=== PATIENT | female | born 1950 | race Caucasian/White ===

== ENCOUNTER 2020-06-16 02:15 | Observation (INO) | payer MEDICARE, SELFPAY ==
[2020-06-16 02:50] VITALS: BMI 37.2
[2020-06-16 02:54] VITALS: BP 130/65; PULSE 83; RESP 16; TEMP 36.9; O2SAT 98
--- NOTE | 2020-06-16 03:01 | CTR_ITS ---
PROCEDURE INFORMATION: Exam: CT Abdomen And Pelvis Without Contrast Exam date and time: 06/16/2020 3:29 AM Age: 69 years old Clinical indication: Pain and abnormal findings; Abnormal lab test; Elevated lipase; Abdominal pain; Generalized; Prior surgery; Surgery type: Gb. Hysterectomy. ; Patient HX: Transient abd pain with elevated lipase. ; Additional info: Abd pain, lipase high TECHNIQUE: Imaging protocol: Computed tomography of the abdomen and pelvis without contrast. Radiation optimization: All CT scans at this facility use at least one of these dose optimization techniques: automated exposure control; mA and/or kV adjustment per patient size (includes targeted exams where dose is matched to clinical indication); or iterative reconstruction. COMPARISON: No relevant prior studies available. RADIATION DOSE METRICS: Total DLP (mGy-cm): 1804.42 FINDINGS: Lungs: Coarsening of pulmonary interstitial markings at lung bases suspected to represent fibrosis. Liver: Normal. No mass. Gallbladder and bile ducts: Normal. No calcified stones. No ductal dilation. Pancreas: Normal. No ductal dilation. Spleen: Normal. No splenomegaly. Adrenal glands: Normal. No mass. Kidneys and ureters: Normal. No hydronephrosis. Stomach and bowel: Bowel surgical changes at right lower quadrant. Appendix: No evidence of appendicitis. 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 Vasculature: Vascular calcifications are noted. No abdominal aortic aneurysm. Lymph nodes: Unremarkable. No enlarged lymph nodes. Urinary bladder: Unremarkable as visualized. Reproductive: Hysterectomy. Bones/joints: No acute fracture. Soft tissues: Right breast surgical changes noted. Other findings: Elevated right hemidiaphragm. 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 Coarsening of pulmonary interstitial markings at lung bases suspected to represent fibrosis. Additional details as above. Radiation Dose CTDIVOL = (mGy): DLP = 1804.42 (mGy-cm)
--- NOTE | 2020-06-16 03:06 | PM.HP ---
Providers/Chief Complaint Admitting Physician: Anjum Ling MD Chief Complaint: HYPERGLYCEMIA History of Present Illness SHAHID ROGER is a 69 year old female who has recently moved to [place] from [place], carries diagnosis of type 2 diabetes does not use insulin presented to [facility] twice in last 48 hours for urinary frequency and high blood sugar. She was seen in the ER for hyperglycemia, she did not meet DKA criteria, she received IV fluids and IV insulin along potassium and will discharge around 10 AM on 06/15 without insulin however hemoglobin A1c is 13. She was asked to follow-up with PCP and her Metformin dose was increased. She went home had fried fish and diet soda and started experiencing nausea, she kept having urinary frequency and glucose monitor was not able to read her high blood sugar. She went to the [facility] again and was directed to our facility for management of poorly controlled type 2 diabetes. Diagnostics at the other facility revealed potassium 3.6 which was repleted with 40 mEq p.o. KCl, sodium 127, lipase 153, pseudohyponatremia, she received 10 units of insulin and her blood sugar improved to 320 after getting normal saline 1 L. TSH normal, lactic acid 2.0, mild leukocytosis 11.0, requested CT abdomen to rule out pancreatitis Patient does endorse polyphagia, polyuria polydipsia, she is up-to-date with her colonoscopies and mammogram has history of lumpectomy, Review of Systems Const: Reports: chills, body aches and fatigue; Denies: fever(s) Eyes: Denies: change in vision ENMT: Denies: throat pain Card: Denies: chest pain Resp: Denies: dyspnea GI: Reports: nausea and diarrhea : Denies: flank pain Musc: Reports: muscle cramps Skin/Breast: Denies: rash Neuro: Denies: headache(s) Psych: Denies: anxiety Endo: Denies: polyuria Geraldo/Lymph: Denies: easy bruising All/Imm: Denies: urticaria Medications/Allergies Allergies Allergy/AdvReac Type Severity Reaction Status Date / Time codeine Allergy ADR-Vomitin Verified 06/16/20 03:01 g Iodinated Contrast Media Allergy ALGY-Rash Verified 06/16/20 03:01 quinapril Allergy ADR-Vomitin Verified 06/16/20 03:01 g PFSH Acute PFSH: Medical History (Updated 06/16/20 @ 03:10 by Anjum Ling MD) Diabetes HTN (hypertension) Murmur, cardiac Surgical History (Updated 06/16/20 @ 03:21 by Anjum Ling MD) H/O lumpectomy H/O neck surgery H/O: hysterectomy Tubal ligation status Family History (Updated 06/16/20 @ 03:11 by Anjum Ling MD) Mother Diabetes CAD (coronary artery disease) Hypertension Stroke Cancer Sister Diabetes Hypertension Stroke Cancer Brother Diabetes Hypertension Father CAD (coronary artery disease) Social History (Updated 06/16/20 @ 03:11 by Anjum Ling MD) Smoking and tobacco status: never smoked Alcohol intake: never Substance/Drug Use: never Lives independently: Yes Housing: Apartment Vitals/I&O/Wt Last Vital Signs Temp 98.5 F 06/16/20 02:54 Pulse 83 06/16/20 02:54 Resp 16 06/16/20 02:54 BP 130/65 06/16/20 02:54 Pulse Ox 98 06/16/20 02:54 Physical Exam Narrative: EXAM NARRATIVE: Very pleasant elderly female, appears stated age No signs of active dehydration or fluid overload Saturating well on room air No active chest pain shortness of breath abdominal pain S1, S2 systolic murmur grade 2/6 Abdomen soft mild tenderness in mid epigastric region bowel sound present Extremities no edema gangrene or ulcer Bilateral breath sounds without adventitious rhonchi or crackles Awake alert oriented x3 GCS 15 No neurological deficits Very pleasant with appropriate mood and affect A&P Assessment and plan (1) Hyperglycemia due to diabetes mellitus: Status: Acute (2) Hyponatremia: Status: Acute (3) Elevated lipase: Status: Acute (4) Hypokalemia: Status: Acute Additional A&P Information Poorly controlled type 2 diabetes Hemoglobin A1c is 13, she lives alone and has never used insulin before, I would start her on Lantus 10 units and start her on moderate sliding scale Will request diabetic teaching TSH 3.0 EKG without any ischemic or infarctive changes, patient is denying dysuria however endorsing polyuria which I believe is secondary to hyperglycemia UA reveals glucosuria, no need of antibiotics, no signs of NM as per EKG from the other facility, noted high lipase rule out pancreatitis requested CT abdomen pelvis Hypokalemia: Repleted Pseudohyponatremia: Hyponatremia secondary to hyperglycemia, corrected sodium is within normal range Essential hypertension: Discontinue hydrochlorothiazide as she is at risk of polyuria due to hyperglycemia I would use losartan instead, she has allergies to lisinopril Full code Consistent carb diet DVT prophylaxis Lovenox Attestations Medical Necessity Statement*: Anticipating discharge in less than 48 hours will need overnight monitoring for hypoglycemia and will need diabetic teaching and initiation of Lantus Time Spent in Patient Care: (>than 50% of time spent in counselling and/or direct pt care on unit). 50mins Coding Level of Care Code Acute Crime Scene Investigator for Chg Fwd Diagnoses Hyperglycemia due to diabetes mellitus E11.65 Hyponatremia E87.1 Elevated lipase R74.8 Hypokalemia E87.6
[2020-06-16 03:52] VITALS: BP 131/69; PULSE 79; RESP 16; TEMP 36.6; O2SAT 96
[2020-06-16] MEDS: enoxaparin 40 mg/0.4 mL Syringe SUBCUT (04:26)
[2020-06-16] MEDS: insulin glargine 100 units/1 mL 10 UNIT SUBCUT (04:26)
[2020-06-16] MEDS: sodium chloride 0.9% 1,000 ML 75 ML IV (04:26)
[2020-06-16] MEDS: potassium chloride ER 20 mEq Tablet 40 MEQ PO (04:27)
[2020-06-16 05:41] LABS: Basophils % 0.4 %; Eosinophils # 0.3 10^3/uL (0.0-0.8); Eosinophils % 2.9 %; Hematocrit 36.1 % (37.0-47.0); Hemoglobin 11.7 g/dL (11.5-15.3); Lymphocytes # 1.5 10^3/uL (0.8-4.8); Lymphocytes % 16.2 %; Mean Corpuscular HGB Conc 32.4 g/dL (30.0-36.0); Mean Corpuscular Hemoglobin 27.2 pg (28.0-34.0); Mean Platelet Volume 10.8 fL (7.4-10.4); Monocytes # 0.8 10^3/uL (0.2-0.9); Monocytes % 8.2 %; Neutrophils # 6.62 10^3/uL (1.8-7.7); Neutrophils % 71.8 %; Nucleated Red Blood Cells % 0 %; Platelet Count 193 10^3/cmm (130-400); Red Cell Distribution Width 13.7 % (12.1-15.1); White Blood Count 9.2 10^3/uL (4.0-10.0)
[2020-06-16] MEDS: levothyroxine 100 mcg Tablet PO (05:43)
[2020-06-16] MEDS: piperacillin-tazobactam 3.375 GM in sodium chloride 0.9% (plus) 50 ML IV ×2 (05:43→12:36)
[2020-06-16 05:55] LABS: Anion Gap 9.7 (5-19); Blood Urea Nitrogen 8 mg/dL (8-23); Calcium 7.7 mg/dL (8.5-10.5); Carbon Dioxide 30 mmol/L (22-29); Chloride 98 mmol/L (98-107); Creatinine Clr Calc Pharmacy 66.5855; Glucose 295 mg/dL (65-115); Osmolality Calculated 287 mOsm/kg (285-295); Potassium 3.7 mmol/L (3.5-5.1); Sodium 134 mmol/L (136-145)
[2020-06-16 06:05] LABS: Estmated Average Glucose 329; Hemoglobin A1C 13.1 % (4.0-6.0)
[2020-06-16 06:08] LABS: Chol HDL Ratio 3.32 mg/dL (0.0-4.40); Cholesterol 136 mg/dL (0-200); HDL Cholesterol 41 mg/dL (60-100); LDL Cholesterol Calculated 65 mg/dL (50-129); LDL HDL Ratio 1.59 RATIO (0.00-3.22); Triglycerides 148 mg/dL (0-150)
[2020-06-16 06:56] LABS: Glucose Point of Care 259 mg/dL (70-110)
[2020-06-16 07:29] VITALS: BP 138/71; PULSE 70; RESP 17; TEMP 36.8; O2SAT 98
[2020-06-16 08:43] VITALS: BP 138/71
[2020-06-16] MEDS: labetalol 200 mg Tablet PO ×2 (08:43→18:02)
[2020-06-16] MEDS: losartan 50 mg Tablet PO (08:43)
--- NOTE | 2020-06-16 10:41 | PC.CHAP ---
Pastoral Care Encounter/Spiritual Assessment Type of Contact [] Declined ignition expert visit [] Patient/Family/Request visit [] Outpatient visit [] Follow-up visit [] Physician referral [] Code/Alert [x] Routine visit [] Staff referral [] Actively dying [] Patient sleeping [] Family support [] [] Out of room [] Palliative care [] [x] Receiving care in room [] Pre-surgical visit [] Trauma [] Long length of stay [] ICU visit [] Other: Relational/Emotional Strength [x] Patient feels connected with others/family/visitors/staff [] Distress [] Loneliness/isolation [] Abandonment Spirituality of Patient [x] Person of Soraya [] Attends Advent of their Soraya [] Believes in Prayer [] Reads Bible or Voodoo materials [] There are Spiritual issues to be addressed Obstetrical Nurse Interventions [x] Prayer [x] Active listening [x] Non-anxious presence [x] Spiritual/emotional support [] Crisis/trauma care [x] Spiritual counseling [] Bereavement support [] Provided bereavement packet [] Provided Bible/devotional materials [] Provided toy/stuffed animal, coloring book to patient or family member [] Provided Communion [] Anointing/Brashear [] Salvation [x] Completed spiritual assessment [] Other: Impact on Illness or Injury [] Angry [] Fearful [x] Anxious [] Often cries [] Exhaustion [] Unable to work [] Unable to attend voodoo [] Unable to walk/stand [] Unable to read [] Unable to drive [] Unable to eat/drink [] Unable to sleep [] Unable to be with family [] Patient intubated [] Other: Summary blood tests as not hed from doctor feels good and has a good attitude going home soon Time spent with patient 10 mins
[2020-06-16 10:51] LABS: Glucose Point of Care 262 mg/dL (70-110)
[2020-06-16 11:28] VITALS: BP 101/56; PULSE 72; RESP 17; TEMP 37.1; O2SAT 96
--- NOTE | 2020-06-16 14:09 | P.PN_ITS ---
Subjective Subjective: Interval history: overnight labs and H7P reviwed, no acute interim events, blood sugar ranging between 250-260, nausea and pain now resolved Medications: Reviewed: Yes Vitals/I&O/Wt Last Vital Signs Temp 98.8 F 06/16/20 11:28 Pulse 72 06/16/20 11:28 Resp 17 06/16/20 11:28 BP 101/56 06/16/20 11:28 Pulse Ox 96 06/16/20 11:28 06/15/20 06/16/20 06/16/20 22:59 06:59 14:59 Intake Total 845 / 845 Output Total 250 / 250 600 / 600 Balance -250 / -250 245 / 245 Weight last 48 hrs Weight 89.448 kg Physical Exam Narrative: EXAM NARRATIVE: GEN: Awake, alert and oriented, no acute distress CVS: S1S2 N RS: CTA B/L Abd: Soft, nt/nd , bs+ OUTBOARD SYSTEM OPERATOR: no focal neuro deficits Data : 06/16/20 05:07 06/16/20 05:07 A&P Assessment and plan (1) Hyperglycemia due to diabetes mellitus: Status: Acute (2) Hyponatremia: Status: Acute (3) Elevated lipase: Status: Acute (4) Hypokalemia: Status: Acute Additional A&P Information Poorly controlled type 2 diabetes Hemoglobin A1c is 13, indicative of poor glycemic control, reports that recently her dose of metformin was increased by her PCP, does not recall her last A1c. At present given a1c >9, indicated to start insulin. Insulin requirements over the last 24 hrs at 28 units Patient is insulin naive, has never used in the past At this time menable to starting once daily Insulin lantus - will prescribe at 12u for now- follow up with PCP in the next 4-7 days with sugar log to adjust dosing. Hypokalemia: Repleted Pseudohyponatremia: Hyponatremia secondary to hyperglycemia, corrected sodium is within normal range Essential hypertension: Discontinued hydrochlorothiazide overnight as she is at risk of polyuria due to hyperglycemia. Started on losartan instead in addition to continuing labetalol 200mg BID. Patient unabel to retun home today as her son needs to set up apartment for her - request discharge tomorrow so her home can be ready Full code Consistent carb diet DVT prophylaxis Lovenox Attestations Medical Necessity Statement*: continued observation, blood sugar better controlled with insulin, needs her home to be set up for discharge Coding Level of Care Code Acute Supervisor Lace Tearing for Chg Fwd Diagnoses Hyperglycemia due to diabetes mellitus E11.65 Hyponatremia E87.1 Elevated lipase R74.8 Hypokalemia E87.6
[2020-06-16 15:00] VITALS: BP 112/63; PULSE 76; RESP 18; TEMP 36.7; O2SAT 94
[2020-06-16 16:34] LABS: Glucose Point of Care 271 mg/dL (70-110)
== END 2020-06-16 19:10 | disposition home or self-care (01) ==
PROVIDERS: Admitting Provider Internal Medicine; Visit Provider Student in an Organized Health Care Education/Training Program
DX: E11.65 Type 2 diabetes mellitus with hyperglycemia (principal); E87.1 Hypo-osmolality and hyponatremia; R74.8 Abnormal levels of other serum enzymes; E87.6 Hypokalemia; I10 Essential (primary) hypertension; Z82.49 Family history of ischemic heart disease and other diseases of the circulatory system
CPT/HCPCS: 36415; 36416; 74176; 80048; 80061; 82962; 83036; 85025; 96372; G0378; G0379; J1650; J1815 ×2; J2543; J7030

== ENCOUNTER 2020-08-18 14:06 | Outpatient (CLI) | payer MEDICARE, SELFPAY ==
--- NOTE | 2020-08-18 14:22 | MM_ITS ---
WS: [id number] Bilateral screening digital mammogram, 08/18/2020 Clinical Data: SCREENING Comparison: None. Findings: The breast parenchymal pattern shows heterogeneous density, more on the right than the left. There is skin thickening of the right breast with deformity of the medial aspect of the right breast. No spic ulated masses or clustered calcifications are seen. There are benign calcifications in the left breas t.There are lymph nodes in the left axilla. MM/[id number] Impression: 1. Postsurgical changes of the right breast. 2. Negative left breast. 3. Recommend annual screening mammograms. BIRADS: 2-Benign FOLLOW UP: 1 Year Follow-up The CAD dump grounds checker was used.
== END 2020-08-18 14:07 | disposition home or self-care (01) ==
LOC: RADSHAW 14:12
PROVIDERS: PCP Family Medicine; Visit Provider Family Medicine
DX: Z12.31 Encounter for screening mammogram for malignant neoplasm of breast (principal)
CPT/HCPCS: 77067

== ENCOUNTER → 2020-08-24 08:43 | Outpatient (BNVA) | payer MEDICARE, SELFPAY | PROVIDERS: PCP Family Medicine; Visit Provider Internal Medicine Cardiovascular Disease | DX: Z01.818 Encounter for other preprocedural examination (principal); Z20.822 Contact with and (suspected) exposure to COVID-19 | CPT/HCPCS: 80048; 85025; 87635 ==

== ENCOUNTER 2020-08-30 08:25 | Day surgery (SDC) | payer MEDICARE, SELFPAY ==
[2020-08-30] VITALS (10 sets, daily range): BP systolic 114–127; BP diastolic 65–101; PULSE 85–94; RESP 16–23; TEMP 36.4–36.9; O2SAT 91–96; BMI 35.3
--- NOTE | 2020-08-30 09:00 | XACV_ITS ---
Ht: 155 cm Wt: 85 kg BSA: 1.95 m2 Gender: Female : 1950 Any Known Allergies: Other Exam Priority: Routine Procedure(s): Procedure Description: Diagnostic procedure Procedure Description: Coronary Angiography Diagnostic Findings * No disease noted in the Left Main, Left Anterior Descending, Right, or Circumflex coronary arteries. * Coronary angiography shows right dominance. Conclusions 1. No disease noted in the Left Main, Left Anterior Descending, Right, or Circumflex coronary arteries. Recommendations * Continue current medical management and risk factor modification. Pressures Phase:Rest AO : 84 / 57 ( 31 ) @ 10:22:00 AM Clinical Evaluation EBL: 5mL-10mL Procedural Details Procedure Consent Obtained. Pre-Procedure Time Out. Identified patient by full name and date of as verbalized by the patient/guarantor. Does the consent match the physician's order: Yes. Accurate & Complete Informed Consent: Yes. Inpatient/Outpatient History & Physical on Chart: Yes. If H&P is completed, is and addenduem needed: N/A; If yes, is the addendum complete: N/A. Visualize and Verify Site with Patient/Guarantor: N/A. Relevant Radiology Images available: Yes. Pre-op teaching completed and patient verbalized understanding. The risks, benefits, and alternatives of sedation and/or procedure were discussed by physician. The patient agrees to continue. Procedure started. PERRLA. Strong, equal hand drywall applicator bilaterally. Lungs clear x 5 lobes. IV Fluids: 0.9% NaCl at KVO. 0 mL infused prior to photographic laboratory technician. Pre Procedural Pulses: bilateral dorsalis pedis was 3+. Pre Procedural Pulses: bilateral posterior tibial was 1+. Pre Procedural Pulses: bilateral radial was 3+. Oxygen started at 2liters/min via nasal canula. right groin was prepped with chloroprep then draped in the usual sterile fashion. right radial was prepped with chloroprep then draped in the usual sterile fashion. Physician notified. Baseline sample Acquired. HR: 92 BPM. Physician arrived. Equipment: 6F - Radial. Cardiac Cath Pack. ACIST Manifold Kit Model BT 2000. Heparinized Saline (2 units/mL), 1000 mL bag. Physician scrubbed in. Immediate Pre-Procedure Time Out. Correct Patient: Yes; Correct Procedure: Yes; Correct Site: Yes; Correct Patient Position: Yes; Correct Supplies: Yes; Dried Flammable Prep: Yes; Blood Products Available: No;. Lidocaine 1% infiltrated to the right radial. Arterial access obtained. A 5 azeri TIG catheter in over wire. Catheter out. A 5 azeri Heath catheter in over wire. Multiple views taken of right coronary artery. Catheter redirected to the LCA. Multiple views taken of left coronary artery. Catheter out. A TR Band was successful obtaining hemostatsis at the Right Radial artery insertion site. TR band placed. Hemostasis obtained. Post Procedure: Pulses reassessed and unchanged. PERRLA. Strong, equal hand drywall applicator bilaterally. No VTE prophylaxis required. Fluoro: 7:08. Medication's Wasted: Heparin = 1000 units. Medication's Wasted: Nitro = 49.8 mg. Medication's Wasted: Lidocaine 1% = 18 mL. Total IV fluids: 50 mL. Contrast type used: Omnipaque 300 mgI/mL, 500 mL bottle. [id number]. Complications: none. Estimated blood loss: 5mL-10mL. Post-op diagnosis: normal coronary arteries. [facility] Clinical Fraility Score: 3: Managing Well. Tight Cooper Indications: New Onset Angina. Chest Pain Symptom Assessment: Atypical Angina. Cardiovascular Instability: No, if yes. Procedure completed. Patient transferred by wheelchair to 1st floor. Vital chart was stopped. Access Site Site: Right Radial artery Sheath Size: 6 Fr Hemostasis Method: TR Band Hemostasis Success: Successful Procedure Medications Start: 10:58 AM Stop: 10:58 AM Medication: Versed Amount: 1 mg Route: I.V. Start: 10:58 AM Stop: 10:58 AM Medication: Fentanyl Amount: 50 mcg Route: I.V. Start: 11:07 AM Stop: 11:07 AM Medication: Versed Amount: 1 mg Route: I.V. Start: 11:07 AM Stop: 11:07 AM Medication: Fentanyl Amount: 50 mcg Route: I.V. Start: 11:09 AM Stop: 11:09 AM Medication: Nitrogylcerin Amount: 200 mcg Route: I.A. Start: 11:22 AM Stop: 11:22 AM Medication: Heparin Amount: 5000 units Route: I.V. I, the attending physician, have reviewed and verified all procedure medications. Yes, all medications given per verbal order History/Risk Factors Hypertension: Yes Dyslipidemia: Yes Tobacco Use: Never Report Signatures Finalized by Anjum Roldan MD on 09/11/2020 04:16 PM
--- NOTE | 2020-08-30 10:58 | W.PM.OPSUD ---
Surgery/Procedure H&P Update DATE OF PROCEDURE: August 30, 2020 DATE H&P PERFORMED: 08/11/20 H&P UPDATE INFORMATION: I have reviewed H&P completed within last 30 days, I have examined patient prior to procedure and No changes to prior documentation CHANGES TO PREVIOUS DOCUMENTATION: Despite medicine worsening of shortness of breath and chest pain PREOP DIAGNOSIS: Worsening of shortness of breath and chest pain PLANNED PROCEDURE: Operation Date: 08/30/20 10:00 Proposed Procedures p left Cardiac Catheterization [id number](Left) - Anjum Roldan MD PATIENT REASSESSED PRIOR TO SEDATION, WITH NO CHANGE NOTED: Yes PHYSICAL EXAM: alert, oriented x 3, clear to auscultation bilaterally and regular rate & rhythm AIRWAY EVAL/ANESTHESIA PLAN: ASA II, Risks, benefits & alternatives of sedation and/or procedure discussed and Patient agrees to continue as planned ADDITIONAL INFORMATION: Patient has been explained all risk benefit and alternative for the procedure. She understand the risk for arrhythmia stroke contrast-induced nephropathy urgent emergent bypass surgery more than 3%. She understand the risk of bleeding transfusion.
[2020-08-30] MEDS: sodium chloride 0.9% 1,000 ML 100 ML IV (12:28)
--- NOTE | 2020-08-30 12:52 | PC.NURSE ---
Pt sitting up and eating lunch and talking to staff. Pts TR band intact no hematoma, bleeding or swelling noted. Radial pulse intact, capillary refill less than 3 seconds. Pt has no c/o pain or discomfort at the present time. Call light in reach. Will cont to monitor.
--- NOTE | 2020-08-30 14:30 | PC.NURSE ---
Pts TR band removed. No hematoma, swelling or bleeding noted.
--- NOTE | 2020-08-30 16:47 | PC.NURSE ---
Pt discharged home. IV removed no redness or swelling noted. Pts discharge instructions given along with follow up anointments. Pt had no c/o pain or discomfort at the time of discharge.
== END 2020-08-30 16:45 | disposition home or self-care (01) ==
LOC: CCL 09:47 → CSU 12:13
PROVIDERS: PCP Family Medicine; Visit Provider Internal Medicine Cardiovascular Disease
DX: I20.0 Unstable angina (principal); R94.39 Abnormal result of other cardiovascular function study; R06.02 Shortness of breath; R07.9 Chest pain, unspecified; Z79.82 Long term (current) use of aspirin; E11.9 Type 2 diabetes mellitus without complications; Z79.84 Long term (current) use of oral hypoglycemic drugs; I10 Essential (primary) hypertension
CPT/HCPCS: 36415; 93454; C1769; C1887; C1894; J1644; J2250; J3010; J3490; J7030; Q9967

== ENCOUNTER → 2020-09-06 10:14 | Outpatient (BNVA) | payer MEDICARE, SELFPAY | PROVIDERS: PCP Family Medicine; Visit Provider Nurse Practitioner Family | DX: I10 Essential (primary) hypertension (principal) | CPT/HCPCS: 80048 ==